=== PATIENT | female | born 1975 | race Caucasian/White ===

== ENCOUNTER 2018-06-22 08:39 | Emergency (ER) | payer SELFPAY ==
[~2018-06-22] VITALS: Wt 78.0 kg
[2018-06-22] MEDS ORDERED: KETOROLAC 30 MG INJ IV STA (08:56)
[2018-06-22] MEDS ORDERED: SOD CHLORIDE 0.9% 1,000 ML IV STA (08:56)
[2018-06-22] MEDS ORDERED: ONDANSETRON 4 MG INJ IV STA (08:56)
[2018-06-22] MEDS ORDERED: HYDR-4011 PO (10:22)
[2018-06-22] MEDS ORDERED: FAMO-96 PO (10:22)
[2018-06-22 10:35] VITALS: BP 112/57; PULSE 61; RESP 18
--- NOTE | 2018-06-22 15:18 | ERD ---
ER Documentation Chief Complaint Chief Complaint AP X 8 DAYS HPI 42-year-old female presenting with abdominal pain for 8 days. Patient had pain in the epigastric region that comes and goes. She denies any chest pain or shortness of breath. No fevers. She has had nausea but no vomiting. Has not taken medications for symptoms. Denies other medical problems. NKDA. Surgical history denies. Social history denies ROS All systems reviewed and are negative except as per history of present illness. Medications Home Meds Active Scripts Hydrocodone/Acetaminophen ([place] 5-325 Tablet) 1 Each Tablet, 1 TAB PO Q6H PRN for PAIN, #7 TAB Prov:SHAYE CHOE PA-C 06/22/18 Famotidine* (Pepcid*) 20 Mg Tablet, 20 MG PO BID for 4 Days, #30 TAB Prov:SHAYE CHOE PA-C 06/22/18 Allergies Allergies: Coded Allergies: No Known Allergy (Unverified , 06/22/18) PMhx/Soc Hx Respiratory Disorders: Yes (Asthma) Hx Alcohol Use: No Hx Substance Use: No Hx Tobacco Use: No Smoking Status: Never smoker FmHx Family History: No diabetes, No coronary disease, No other Physical Exam Vitals Vital Signs Date Temp Pulse Resp B/P (MAP) Pulse Ox O2 O2 Flow FiO2 Time Delivery Rate 06/22/18 97.8 61 18 112/57 98 Room Air 10:35 (75) 06/22/18 98.1 90 18 140/63 99 08:42 (88) Physical Exam GENERAL: The patient is well-appearing, well-nourished, in no acute distress HEENT: Atraumatic. Conjunctivae are pink. Pupils equal, round, and reactive to light. There is no scleral icterus. Tympanic membranes clear bilaterally. Oropharynx clear. NECK: C-spine is soft and supple. There is no meningismus. There is no cervical lymphadenopathy. CHEST: Clear to auscultation bilaterally. There are no rales, wheezes or rhonchi. HEART: Regular rate and rhythm. No murmurs, clicks, rubs or gallops. ABDOMEN: Normal active bowel sounds. No distention. No organomegaly. Tender to palpation in the epigastric region with no rebound tenderness. Result Diagram: 4/24/19 0919 4/24/19 0919 Results 24 hrs Laboratory Tests Test 06/22/18 09:08 06/22/18 09:12 06/22/18 09:19 Urine Color YELLOW Urine Clarity SLIGHTLY CLOUDY Urine pH 5.0 Urine Specific [place] 1.015 Urine Ketones NEGATIVE mg/dL Urine Nitrite NEGATIVE mg/dL Urine Bilirubin NEGATIVE mg/dL Urine Urobilinogen NEGATIVE mg/dL Urine Leukocyte Esterase NEGATIVE Casey/ul Urine Microscopic RBC 1 /HPF Urine Microscopic WBC 1 /HPF Urine Squamous Epithelial Cells FEW /HPF Urine Hemoglobin 1+ mg/dL Urine Glucose NEGATIVE mg/dL Urine Total Protein NEGATIVE mg/dl POC Beta HCG, Qualitative NEGATIVE White Blood Count 4.7 10^3/ul Red Blood Count 4.74 10^6/ul Hemoglobin 13.3 g/dl Hematocrit 39.8 % Mean Corpuscular Volume 84.0 fl Mean Corpuscular Hemoglobin 28.1 pg Mean Corpuscular 33.4 g/dl Hemoglobin Concent Red Cell Distribution Width 13.5 % Platelet Count 248 10^3/UL Mean Platelet Volume 8.8 fl Immature Granulocytes % 0.200 % Neutrophils % 69.7 % Lymphocytes % 20.8 % Monocytes % 7.2 % Eosinophils % 1.9 % Basophils % 0.2 % Nucleated Red Blood Cells % 0.0 /100WBC Immature Granulocytes # 0.010 10^3/ul Neutrophils # 3.3 10^3/ul Lymphocytes # 1.0 10^3/ul Monocytes # 0.3 10^3/ul Eosinophils # 0.1 10^3/ul Basophils # 0.0 10^3/ul Nucleated Red Blood Cells # 0.0 10^3/ul Sodium Level 143 mmol/L Potassium Level 4.4 mmol/L Chloride Level 107 mmol/L Carbon Dioxide Level 27 mmol/L Anion Gap 9 Blood Urea Nitrogen 11 mg/dl Creatinine 0.54 mg/dl Est Glomerular Filtrat > 60 mL/min Rate mL/min Glucose Level 117 mg/dl Calcium Level 9.4 mg/dl Total Bilirubin 0.3 mg/dl Direct Bilirubin 0.00 mg/dl Indirect Bilirubin 0.3 mg/dl Aspartate Amino 42 IU/L Transf (AST/SGOT) Alanine 48 IU/L Aminotransferase (ALT/SGPT) Alkaline Phosphatase 92 IU/L Troponin I < 0.012 ng/ml Total Protein 7.6 g/dl Albumin 4.6 g/dl Globulin 3.00 g/dl Albumin/Globulin Ratio 1.53 Lipase 42 U/L Current Medications Medications Dose Sig/Debora Start Time Status Last (Trade) Ordered Route PRN Stop Time Admin Dose Reason Admin Sodium 1,000 ml @ Q1H STAT 06/22/18 DC 06/22/18 Chloride 1,000 mls/hr IV 08:56 09:31 06/22/18 09:55 Ondansetron 4 mg ONCE STAT 06/22/18 DC 06/22/18 HCl (Zofran IV 08:56 09:18 Inj) 06/22/18 08:58 Ketorolac 30 mg ONCE STAT 06/22/18 DC 06/22/18 Tromethamine IV 08:56 09:18 (Toradol) 06/22/18 08:58 Procedures/MDM DIAGNOSTIC IMAGING REPORT Patient: DONY SWANSON : 1975 Age: 42 Sex: F MR #: [id number] DOS: 06/22/18 0856 Ordering MD: HERNANDEZ CHOE PA-C Location: [facility] Room/Bed: PROCEDURE: US Abdomen. CLINICAL INDICATION: Abdominal pain TECHNIQUE: Multiple real-time images were acquired of the patient's abdomen and retroperitoneum utilizing a high resolution transducer. COMPARISON: None FINDINGS: The pancreas is only incompletely visualized due to overlying bowel gas. Those portions that could be visualized are unremarkable. The liver is mildly enlarged maximal sagittal mention 16.1 cm. Hepatic fatty infiltration without focal hepatic lesions. No evidence of cholelithiasis gallbladder wall thickening or pericholecystic fluid. Common bile duct normal limits in size maximal transverse diameter 5.96 mm. No intrahepatic biliary ductal dilation. The right kidney is a normal in size measuring 9.79 x 3.82 cm. Normal right renal parenchymal echogenicity without intra renal mass or calculus. There is fullness of the right collecting system but no definite hydronephrosis. Normal portal venous flow. IMPRESSION: 1. Unremarkable gallbladder without biliary ductal dilation. 2. Mild hepatomegaly with hepatic fatty infiltration. 3. Unremarkable right kidney. 4. Incomplete demonstration of the pancreas. Those portions visualized are unremarkable. EKG: Rate/Rhythm: 90 bpm Normal Sinus Rhythm QRS, ST, T-waves: No changes consistent w/ acute ischemia Impression: No evidence of ischemia or arrhythmia MDM: 42-year-old female presenting with epigastric pain. I have low suspicion for cardiac or pulmonary emergency. EKG and troponins are within normal limits. I have low suspicion for acute abdominal emergency. Patient will be discharged with supportive medications. I do not feel further work-up or blood work is indicated. Patient symptoms improved in the ER. Patient is told symptoms change or worsen to return immediately to the ER. All questions answered at discharge Departure Diagnosis: Primary Impression: Epigastric abdominal pain Condition: Stable Patient Instructions: Epigastric Pain (Uncertain Cause) Referrals: [facility] YOU HAVE RECEIVED A MEDICAL SCREENING EXAM AND THE RESULTS INDICATE THAT YOU DO NOT HAVE A CONDITION THAT REQUIRES URGENT TREATMENT IN THE EMERGENCY DEPARTMENT. FURTHER EVALUATION AND TREATMENT OF YOUR CONDITION CAN WAIT UNTIL YOU ARE SEEN IN YOUR DOCTORS OFFICE WITHIN THE NEXT 1-2 DAYS. IT IS YOUR RESPONSIBILITY TO MAKE AN APPOINTMENT FOR FOLOW-UP CARE. IF YOU HAVE A PRIMARY DOCTOR --you should call your primary doctor and schedule an appointment IF YOU DO NOT HAVE A PRIMARY DOCTOR YOU CAN CALL OUR PHYSICIAN REFERRAL HOTLINE AT IF YOU CAN NOT AFFORD TO SEE A PHYSICIAN YOU CAN CHOSE FROM THE FOLLOWING [facility] [address] [facility]. [facility] [address] [facility] [address] [facility] [address] [facility] [facility]. [facility] [address] [facility]. [facility]. [address] Additional Instructions: FOLLOW UP WITH YOUR PRIMARY CARE PHYSICIAN TOMORROW.Return to this facility if you are not improving as expected. SHAYE CHOE PA-C Jun 22, 2018 15:18
== END 2018-06-22 10:34 | disposition home or self-care (01) ==
LOC: FTE 08:39
DX: R10.13 Epigastric pain (principal); J45.909 Unspecified asthma, uncomplicated; R11.0 Nausea
CPT/HCPCS: 36415; 76705; 80053; 81001; 81025; 83690; 84484; 85025; 93005; 96361; 96374; 96375; 99285; J1885; J2405; J7030